=== PATIENT | male | born 1980 | race Caucasian/White ===

== ENCOUNTER 2020-10-10 12:14 | Emergency (ER) | payer SELFPAY ==
--- NOTE | 2020-10-10 12:43 | EDPHYS ---
Physician Documentation [facility] Name: Maciej Nava Age: 40 yrs Sex: Male : 1980 Arrival Date: 10/10/2020 Time: 12:17 Bed 15 Private MD: ED Physician Gurwinder Jaramillo HPI: 10/10 12:37 This 40 yrs old Male presents to ER via Ambulatory with complaints of Abscess.pm1 17:55 The patient presents with pain, swelling. The problem is located in the upper left pm1 first molar and upper left second molar. Onset: The symptoms/episode began/occurred 2 day(s) ago. Duration: The symptoms are continuous. Modifying factors: The symptoms are alleviated by nothing, the symptoms are aggravated by nothing. Associated signs and symptoms: Pertinent negatives: dysphagia, fever, inability to eat. Severity of symptoms: in the emergency department the symptoms are actually worse. The patient has experienced similar episodes in the past, multiple times. The patient has not recently seen a physician. Historical: - Allergies: 12:28 Ultram; ll1 - PMHx: 12:29 None; ll1 - PSHx: 12:28 Appendectomy; ll1 12:29 part of lower intestine removed.; ll1 - Immunization history:: Adult Immunizations up to date. - Social history:: Smoking status: Patient denies any tobacco usage or history of. ROS: 17:55 Constitutional: Negative for fever, chills, and weight loss. pm1 17:55 Cardiovascular: Negative for chest pain, palpitations, and edema, Respiratory: Negative for shortness of breath, cough, wheezing, and pleuritic chest pain, MS/Extremity: Negative for injury and deformity, Skin: Negative for injury, rash, and discoloration. 17:55 ENT: Positive for dental pain, of the upper left second molar and upper left first molar. 17:55 All other systems are negative. Exam: 17:55 Constitutional: This is a well developed, well nourished patient who is awake, alert, pm1 and in no acute distress. Head/Face: Normocephalic, atraumatic. 17:55 Skin: Warm, dry with normal turgor. Normal color with no rashes, no lesions, and no evidence of cellulitis. MS/ Extremity: Pulses equal, no cyanosis. Neurovascular intact. Full, normal range of motion. 17:55 Eyes: Exam is negative for acute changes, Extraocular movements: intact throughout, Conjunctiva: no acute changes, no injection. 17:55 ENT: Dental exam: dental caries, gum swelling, specifically in the upper left first molar (#14) and upper left second molar (#15), negative for trismus. 17:55 Cardiovascular: Rate: normal, Rhythm: regular, Pulses: no pulse deficits are appreciated. 17:55 Respiratory: Exam negative for acute changes, respiratory distress, shortness of breath. 17:55 Neuro: Exam negative for acute changes, Orientation: is normal, Mentation: is normal, Motor: moves all fours. Vital Signs: 12:30 BP 133 / 90; Pulse 100; Resp 18; Temp 99.0; Pulse Ox 98% ; Pain 5/10; ll1 Procedures: 17:59 I \T\ D: Incision and drainage was performed for an abscess of the lateral gum to upper pm1 left second molar and upper left first molar Incised with 18 gauge needle. Drained small amount purulent fluid. the patient tolerated the procedure well, gum abscess deroofed with 18 gauge needle. MDM: 12:25 Patient medically screened. pm1 12:37 Data reviewed: vital signs. Data interpreted: Pulse oximetry: on room air is 98 %. pm1 Interpretation: normal. Counseling: I had a detailed discussion with the patient and/or guardian regarding: the historical points, exam findings, and any diagnostic results supporting the discharge/admit diagnosis, the need for outpatient follow up, for definitive care, a dentist, to return to the emergency department if symptoms worsen or persist or if there are any questions or concerns that arise at home. Administered Medications: No medications were administered Disposition: 17:33 Co-signature as Attending Physician, Gurwinder Jaramillo MD. rn Disposition Summary: 10/10/20 12:43 Discharge Ordered Location: Home pm1 Problem: new pm1 Symptoms: have improved pm1 Condition: Stable pm1 Diagnosis - Periapical abscess without sinus pm1 Followup: pm1 - With: Emergency Department - When: As needed - Reason: Worsening of condition Followup: pm1 - With: Private Physician - When: 2 - 3 days - Reason: Recheck today's complaints, Continuance of care, Re-evaluation by your physician Discharge Instructions: - Discharge Summary Sheet pm1 - Dental Abscess pm1 - Dental Pain pm1 - Diet and Dental Disease pm1 Forms: - Medication Reconciliation Form pm1 - Thank You Letter pm1 - Antibiotic Education pm1 - Prescription Opioid Use pm1 Prescriptions: - Augmentin 875-125 mg Oral Tablet - take 1 tablet by ORAL route every 12 hours for 10 days; 20 tablet; Refills: 0, pm1 Product Selection Permitted Signatures: Gurwinder Jaramillo MD MD rn Booker Kaminski, LANDMAN LANDMAN pm1 Btesey Collier RN RN ll1 Corrections: (The following items were deleted from the chart) 12:30 12:28 PMHx: None; ll1 ll1 12:30 12:28 PMHx: part of lower intestine removed; ll1 ll1
--- NOTE | 2020-10-10 12:43 | ER ---
Nurse's Notes [facility] Name: Maciej Nava Age: 40 yrs Sex: Male : 1980 Arrival Date: 10/10/2020 Time: 12:17 Bed 15 Private MD: Diagnosis: Periapical abscess without sinus Presentation: 10/10 12:30 Chief complaint: Patient states: L upper jaw pain and bump noted for 1 day. No fever. ll1 Coronavirus screen: Client denies travel out of the [place] in the last 14 days. At this time, the client does not indicate any symptoms associated with coronavirus-19. Ebola Screen: Patient denies travel to an Ebola-affected area in the 21 days before illness onset. Initial Sepsis Screen: Does the patient meet any 2 criteria? HR > 90 bpm. No. Patient's initial sepsis screen is negative. Does the patient have a suspected source of infection? Yes: Other: dental pain. Risk Assessment: Do you want to hurt yourself or someone else? Patient reports no desire to harm self or others. Onset of symptoms was October 10, 2020. 12:30 Method Of Arrival: Ambulatory ll1 12:30 Acuity: SHELDON 5 ll1 Historical: - Allergies: 12:28 Ultram; ll1 - PMHx: 12:29 None; ll1 - PSHx: 12:28 Appendectomy; ll1 12:29 part of lower intestine removed.; ll1 - Immunization history:: Adult Immunizations up to date. - Social history:: Smoking status: Patient denies any tobacco usage or history of. Screenin:41 Abuse screen: Denies threats or abuse. Denies injuries from another. Nutritional tr6 screening: No deficits noted. Tuberculosis screening: No symptoms or risk factors identified. Fall Risk None identified. Assessment: 12:40 General: Appears in no apparent distress. Behavior is calm, cooperative, appropriate tr6 for age, Smells of. Pain: Complains of pain in abscess above tooth. Neuro: No deficits noted. Cardiovascular: No deficits noted. Respiratory: No deficits noted. GI: No deficits noted. : No deficits noted. EENT: No deficits noted. Derm: No deficits noted. Musculoskeletal: No deficits noted. Vital Signs: 12:30 BP 133 / 90; Pulse 100; Resp 18; Temp 99.0; Pulse Ox 98% ; Pain 5/10; ll1 ED Course: 12:17 Patient arrived in ED. ds1 12:24 Booker Kaminski NP is PHCP. pm1 12:24 Gurwinder Jaramillo MD is Attending Physician. pm1 12:27 Arm band placed on Patient placed in an exam room, on a stretcher. ll1 12:35 Triage completed. ll1 12:40 Goldie Singer, RN is Primary Nurse. tr6 12:41 Resting quietly. tr6 12:41 Patient has correct armband on for positive identification. Bed in low position. Call tr6 light in reach. Side rails up X 1. Door closed. Noise minimized. Visitors limited. Lights dimmed. Moved to private room. 12:41 No provider procedures requiring assistance completed. Patient did not have IV access tr6 during this emergency room visit. Administered Medications: No medications were administered Outcome: 12:43 Discharge ordered by MD. pm1 12:50 Discharged to home ambulatory. tr6 12:50 Condition: good 12:50 Discharge instructions given to patient, Instructed on discharge instructions, follow up and referral plans. Demonstrated understanding of instructions, follow-up care, medications. 13:15 Patient left the ED. tr6 Signatures: Briseida Cramer ds1 Booker Kaminski NP DISCHARGE SPECIALIST pm1 Betsey Collier RN RN ll1 Goldie Singer, PAULA RN tr6 Corrections: (The following items were deleted from the chart) 12:30 12:28 PMHx: None; ll1 ll1 12:30 12:28 PMHx: part of lower intestine removed; ll1 ll1
[2020-10-10 13:27] VITALS: BP 133/90; TEMP 99; O2SAT 98
== END 2020-10-10 13:15 | disposition home or self-care (01) ==
LOC: ER 12:14
PROC: 0C95XZZ Drainage of Upper Gingiva, External Approach (ICD-10-PCS; principal; 2020-10-10)
DX: K04.7 Periapical abscess without sinus (principal); Z88.5 Allergy status to narcotic agent
CPT/HCPCS: 99281

== ENCOUNTER 2020-11-03 15:01 | Emergency (ER) | payer SELFPAY ==
--- OUTSIDE RECORDS SUMMARY | 2020-11-03 15:03 | XMS REPORT | Continuity of Care Document ---
:[address] [facility] t Address [address] [place] [address] Care Team Providers Name Role Phone Acosta DO Attending Clinician Problems This patient has no known problems. Allergies, Adverse Reactions, Alerts This patient has no known allergies or adverse reactions. Medications This patient has no known medications. Procedures This patient has no known procedures. Encounters Start End Encounter Admission Attending Care Care Encounter Source Date/Time Date/Time Type Type Clinicians Facility Department ID 2020-03-31 2020-03-31 Emergency , [facility] [id number] 07:06:00 08:20:00 Dmitriy Gonzalez [id number] [place] [id number] [place] [id number] Results This patient has no known results.
--- NOTE | 2020-11-03 16:43 | ER ---
Nurse's Notes [facility] Name: Maciej Nava Age: 40 yrs Sex: Male : 1980 Arrival Date: 11/03/2020 Time: 15:27 Bed Waiting Private MD: Diagnosis: Presentation: 11/03 15:48 Chief complaint: Patient states: LUQ abdominal pain, N/V x 2 days. Coronavirus screen: [facility] Client denies travel out of the [place] in the last 14 days. At this time, the client does not indicate any symptoms associated with coronavirus-19. Ebola Screen: No symptoms or risks identified at this time. Initial Sepsis Screen: Does the patient meet any 2 criteria? No. Patient's initial sepsis screen is negative. Does the patient have a suspected source of infection? No. Patient's initial sepsis screen is negative. Risk Assessment: Do you want to hurt yourself or someone else? Patient reports no desire to harm self or others. Onset of symptoms was November 01, 2020. 15:48 Method Of Arrival: Ambulatory [facility] 15:48 Acuity: SHELDON 3 jl Historical: - Allergies: 15:51 Ultram; jl7 - Home Meds: 15:51 None [Active]; jl7 - PMHx: 15:51 None; jl7 - PSHx: 15:51 Appendectomy; part of lower intestine removed.; jl7 - Immunization history:: Adult Immunizations unknown, Client reports having NOT received the Covid vaccine. - Social history:: Smoking status: Patient reports the use of cigarette tobacco products, smokes 1.5 packs per day. Vital Signs: 15:48 BP 106 / 80; Pulse 105; Resp 17; Temp 98.4; Pulse Ox 100% ; Weight 58.97 kg; Height 5 jl7 ft. 5 in. (165.10 cm); Pain 4/10; 15:48 Body Mass Index 21.63 (58.97 kg, 165.10 cm) [facility] ED Course: 15:27 Patient arrived in ED. as 15:51 Triage completed. 7 15:51 Arm band placed on right wrist. Patient placed in waiting room, Patient notified of [facility] wait time. 16:35 Patient's name was called from ER lobby. No response. aa5 16:35 Patient's [facility] was called from [facility]. Unable to locate patient. Will disposition as jl7 left without being seen by a provider. Administered Medications: No medications were administered Outcome: 16:43 Patient left the ED. ld1 Signatures: Teena De La O Audri, RN RN aa5 Suzi Martínez RN RN jl7 Jessica Pineda RN RN ld1 Corrections: (The following items were deleted from the chart) 16:41 16:34 Jessica Pineda, PUALA is Primary Nurse. ld1 aa5
[2020-11-03 17:23] VITALS: BP 106/80; TEMP 98.4; O2SAT 100
== END 2020-11-03 16:43 | disposition left against medical advice (07) ==
LOC: ER 15:01
DX: Z53.21 Procedure and treatment not carried out due to patient leaving prior to being seen by health care provider (principal)
CPT/HCPCS: 99281